=== PATIENT | female | born 1955 | race Caucasian/White ===

== ENCOUNTER 2025-06-23 14:45 | Outpatient (AMB) | payer MEDICARE, SELFPAY ==
--- OUTSIDE RECORDS SUMMARY | 2016-03-15 | XMS_ITS | Encounter Summary ---
Author Organization [facility] Address [address] [place] [address] Phone Care Team Providers Care Friend Of The Court Name Role Phone Unavailable Primary Care Provider Unavailabl e Encounter Details Date Type Department Care Team (Late st Contact Info) Description 03/15/2016 Hospital Encounter [facility] [address] [place] [address] Chase Rios Jp, MD [address] [facility] [address] [place] [address] [email or web address] Social History Tobacco Use Types Packs/Day Years Used Date Smoking Tobacco: Former Smokeless Tobacco: Never Alcohol Use Standard Drinks/Week Comments No 0 (1 standard drink = 0.6 oz pur e alcohol) Child or Family Care Answer Date Record ed Do you have problems with on e of the following making it difficult for you to work, study, or receive health care? No 05/09/2025 Education Answer Date Recorded Are you interested in more education? Not on payton e 02/14/2023 Are you concerned about learning? Not on file 02/14/2023 No 02/14/2023 No 02/14/2023 Food Answer Date Recorded Within the past 6 months we worried whether our food would run out before we got money to buy more. Never True 05/09/2025 Within the past 6 months the food we bought just didn't last and we didn't have enough money to get more. Never True Residential Stability Answer Date Recor ded What is your housing situation today? I have sophy sing 05/09/2025 How many times have you move d in the past 12 months? Zero (I did not move) 05/09/2025 Paying for Meds Answer Date Recorded Do you have trouble paying for medicines? No 05/09/2025 Paying Utility Bills Answer Date Record ed Do you have trouble paying your heating or elect ricity bill? No 05/09/2025 Transportation Answer Date Recorded Has the lack of transportati on kept you from medical appointments or from getting medications? No 05/09/2025 Digital Access Answer Date Recorded No 05/09/2025 Yes 05/09/2025 Do you have reliable internet access at home? Ye s 05/09/2025 Do you have a device (e.g., phone, tablet, computer) with a working camera? Yes 05/09/2025 Comments Unknown Sex and Gender Information Value Date Recorded Sex Assigned at Female 11/15/2024 9:22 AM EST Legal Sex Female 7:08 PM EST Gender Identity Not on file Sexual Orientation Choose not to disclose 2024 9:22 AM EST documented as of this encounter Functional Status documented as of this encounter Plan of Treatment Not on file documented as of this encounter Procedures Procedure Name Priority Date/Time Associated Diagnosis Comments XR UPPER EXTREMITY OUTSIDE (NO INTERPRETATION) Routine 03/15/2016 12:00 AM EDT documented in this encounter Results * XR Upper Extremity Outside (No Interpretation) (03/15/2016 12:00 AM EDT) Narrative [facility] IMG INTERFACES - 03/03/2018 1:43 PM EDT This study is for PACS storage only and not for interpretation. us Chase Rios MD IMG OUTSIDE IMAGING W/OUT INTER PRETATION Final Result [facility] IMG INTERFACES documented in this encounter Visit Diagnoses Not on filedocumented in this encounter Additional Source Comments The information contained in this document represents components of the legal health record. It is not the complete legal health record.[facility]
--- OUTSIDE RECORDS SUMMARY | 2017-11-22 01:00 | XMS_ITS | Encounter Summary ---
Author Organization [facility] Address [address] [place] [address] Phone Care Team Providers Care Horticultural Farmworker Name Role Phone Unavailable Primary Care Provider Unavailabl e Reason for Visit * MRI/CAT Scan - Closed Specialty Diagnoses / Procedures Referred By Becka saenz Referred To Contact Procedures MRI Outside Upper Extremity (No Interpretation) Chase Rios Jp, MD [address] [facility] [place] [address] Phone: tel: fax: [email or web address] Referral ID Status Reason Start Date Expiration Date Visits Re quested Visits Authorized [id number] Closed 03/03/2018 03/03/2019 1 1 Encounter Details Date Type Department Care Team (Late st Contact Info) Description 11/22/2017 Hospital Encounter [facility] Imaging [address] [place] [address] Chase Rios Jp, MD [address] [facility] [place] [address] [email or web address] Social History Tobacco Use Types Packs/Day [...] Procedure Name Priority Date/Time Associated Diagnosis Comments MRI UPPER EXTREMITY OUTSIDE (NO INTERPRETATION) Routine 11/22/2017 12:00 AM EST documented in this encounter Results * MRI Outside Upper Extremity (No Interpretation) (11/22/2017 12:00 AM EST) Narrative [facility] IMG INTERFACES - 03/03/2018 1:40 PM EDT This study is for PACS storage only and not for interpretation. us Chase Rios MD IMG OUTSIDE IMAGING W/OUT INTER PRETATION Final Result [facility]G INTERFACES documented in this encounter Visit Diagnoses Not on filedocumented in this encounter Additional Source Comments The information contained in this document represents components of the legal health record. It is not the complete legal health record.[facility]
--- OUTSIDE RECORDS SUMMARY | 2023-07-15 11:00 | XMS_ITS | Continuity of Care Document ---
Author Organization [facility] Address [address] [place] [address] [address] [place] [address] Phone Care Team Providers Care Scaler Name Role Phone Jorje GARCIA FACS RVT Gianni AMBROSE Unavailable Unavailable Allergies, Adverse Reactions, Alerts Substance Reaction Status Criticality latex Active No Information Medications Medication Instructions Dosage Effective Dates (start - stop) Status Comments PROGESTERONE (unknown strength) Not Available - Active LEVOXYL (unknown strength) take 1 tablet by oral route every day Not Available - Active Procedures Procedure Date Office/Oupt E&M New Pt 30 Mins Advance Directives Directive Yes / No Effective Date File Name No Information Encounters Encounter Description Practice Location Reason(s) For Visit Diagnoses Date Provider Providers Copied on Encounter Office/Oupt E&M New Pt 30 Mins [facility], [address] [place] [address] [address], [place], [id number], [place] tel:[phone] [facility] - [place] Chronic venous htn w oth comp of bilateral low extrm Sep-2 3 Jorje GARCIA FACS RVT ARNOL [place]. [address] [facility] [address] [address] [place]. tel:[phone] Referring Provider: NOT FOUND PCP. Family History Family Member Type Diagnosis Age At Onset No Information Payers Payer name Insurance type Covered alliance party ID Authoriza tion(s) Medicare HELEN HSU [id number] BCBS HELEN ROSE [id number] Social History Type Description Quantity Date Captured Comments Alcohol Use Details Unknown Caffeine Use Details Unknown Tobacco Use Status No Information Smoking Status Former Smoker Non-Smoking Tobacco Use Details : No Details Available : No Details Available Sex Female Vital Signs Date / Time: Height Weight BMI Pulse Rate Blood Pressure Temperature Respiratory Rate Body Surface Area Head Circumference Head Circ. Percentile Wt./Berto. Percentile BMI percentile Pulse Ox Inhaled Ox 48.530 kg (107.00 lbs) 19.5 9 kg/m eter (2) 110/66 mm[Hg] Chief Complaint And Reason For Visit No Information Reason For Referral Reason For Referral No Information Plan Of Treatment Date Type Action Status Goal Tobacco cessation counseling completed History Of Present Illness Encounter Date Complaint History Of Prese nt Illness No Information Functional Status Date Functional Assessmen t No Information Instructions Date Instruction Additional Infor mation Compression stocking usage as conservative measure Related to Chronic venous htn w oth comp of bilateral low extrm Patient education booklet given Related to Chronic venous htn w oth comp of bilateral low extrm Assessments Type Assessment Date No Information Patient Care Teams Name Effective Dates (start - stop) Status Members No Information
--- OUTSIDE RECORDS SUMMARY | 2024-02-28 09:00 | XMS_ITS ---
Author Organization [employer] [facility] Address [address] [place] [address] Care Team Providers Care Electro Mechanical Technician Name Role Phone Levy Sanon MD Primary Care Provider Unavail Eliza Valentin Unavailable [phone] REASON FOR VISIT HR MEDICARE PE Encounters Encounter Location Date Provider Diagnosis [facility] [facility] [address] [place] [address] 02/28/2024 Eliza Mendoza Plan Of Treatment Next Appt Details Provider Name:Eliza gonzales, 03/17/2026 01:00:00 PM, [address], [address], [place], [address], Progress Notes * MARY RHODESDOB:[birth year] (70 yo F)Acc No.[id number]:02/28/2024 PROGRESS NOTES Patient: MARY QUINN Appointment Provider: Ishan Mendoza M.D. :1955 A ge:69 Y S ex:Female Date:02/28/2024 Address:[address] [place], [place] [id number] Pcp:Levy Sanon MD Subjective: * Chief Complaints: * 1 . HR MEDICARE PE. * Medical History: Objective: * Vitals: Assessment: Plan: * Treatment: * Images: Billing Information: * Visit Code: * Procedure Codes: * Electronic signature of Carlos Mendoza MD on 06/23/2025 at 05:03 PM EDT Sign off status: Pending * Appointment Provider: Ishan Mendoza M.D. Date: 0 02/28/2024 Generated for Xuan mcallister/Colby/Damariitting on: 0 06/23/2025 05:03 PM EDT
--- NOTE | 2025-06-23 14:46 | A.OFFVIS_ITS ---
Vital Signs 06/23/25 14:49 Height 5 ft Weight 108 lb 4 oz BMI 21.1 BP 110/68 Blood Pressure Location Rt brachial Position Sitting Pulse 74 Pulse Source Pulse Oximeter Pulse Oximetry (%) 98 Oxygen Delivery Method Room Air Intake Visit Reasons: ENP - Hemifacial Spasm L Side Nutrition Therapist Required: No Accompanied by: Self / Same As Patient Allergies adhesive tape Allergy (Unknown, Verified 06/23/25 14:47) Unknown latex Allergy (Unknown, Verified 06/23/25 14:47) Unknown Penicillins Allergy (Unknown, Verified 06/23/25 14:47) Unknown HPI Comments Details: 70y/o female left hemifacial spasm for 12 years - seen by multiple neurologist , treated with botox comes for neurological opinion. she has trouble with botox due to difficulty closing after botox and has decided to go for surgery with scheduled Aug 2025. She says her hemifacial spasm affects her quality of life significantly. 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 Father No problems noted. Son No problems noted. Social History Alcohol intake: current Comment: Occasionally Patient Tobacco Use Status: Never used Tobacco Use of substances other than those prescribed or required for medical reasons: No Current occupational status: unemployed Physical Exam Vital Signs: Last Vital Signs Pulse 74 06/23/25 14:49 BP 110/68 06/23/25 14:49 Pulse Ox 98 06/23/25 14:49 Oxygen Delivery Method Room Air 06/23/25 14:49 BMI result Body Mass Index 21.1 Const Orientation/consciousness: patient oriented x3 Eyes Pupils: Equal, round and reactive pupils present Neuro Other: left hemifacial spasm MIld to moderate General: patient oriented x3, gait normal, tone normal, moves all extremities and no focal motor deficits Cranial nerves: Yes Facial sensation intact/muscles of mastication intact, Yes Equal, round and reactive pupils present, Yes Bilaterally intact EOM present, Yes Nystagmus not present, Yes Normal facial strength present, Yes Midline tongue present, Yes Symmetric palate elevation present and Yes Ability to bilaterally elevate shoulders present Cognition (Neuro): normal cognition Gait exam (Neuro): Normal gait present Motor exam (neuro): 5/5 motor strength present throughout and Normal motor muscle tone present throughout Deep tendon reflexes (DTR's): Right triceps reflex intensity grade: 2+, Left triceps reflex intensity grade: 2+, Rt Biceps (C5, C6): 2+, Left biceps reflex intensity grade: 2+, Right brachioradialis reflex intensity grade: 2+, Left brachioradialis reflex intensity grade: 2+, Right patellar reflex intensity grade: 2+, Left patellar reflex intensity grade: 2+ and Right ankle reflex intensity grade: 2+ Coordination: [id number] test normal Assessment & Plan Assessment & Plan (1) Hemifacial spasm of left side of face: Code(s): G51.32 - Clonic hemifacial spasm, left Category: Medical Plan She is scheduled for surgery in AUG ( microvascular decompression) will consider BOtox if she does not respond. Coding Level of Care Code New Pt Level 4 (79632) Diagnoses Hemifacial spasm of left side of face G51.32
[2025-06-23 14:49] VITALS: BP 110/68; PULSE 74; O2SAT 98; BMI 21.1
--- OUTSIDE RECORDS SUMMARY | 2025-06-23 17:03 | XMS_ITS | Clinical Summary ---
Author Organization [facility] Address [address] [place] [address] Care Team Providers Care Market Master Name Role Phone Levy Sanon Primary Care Provider [phone] Social History Tobacco Use Types Packs/Day Years Used Date Smoking Tobacco: Never Assessed Comments Unknown Sex and Gender Information Value Date Recorded Sex Assigned at Not on file Legal Sex Female 10:22 PM EDT Gender Identity Not on file Sexual Orientation Not on file Plan of Treatment Health Maintenance Due Date Last Done Comments Hepatitis C Screening 1955 DTaP/Tdap/Td (1 - Tdap) 1971 Mammogram/Breast Imaging 1993 Pneumococcal 50+ years (1 of 1 - PCV) 2003 Zoster (Shingrix) (1 of 2) 2003 Bone Density 2018 COVID-19 Vaccine ( - 2023-2 5 season) 2025 Influenza (#1) 2025 RSV (1 - 1-dose 75+ series) 02/28/2028 HPV Vaccine (No Doses Required) Completed Hep A Aged Out No longer eligi ble based on patient's age to complete this topic Hep B Aged Out No longer eligi ble based on patient's age to complete this topic Hib Aged Out No longer eligi ble based on patient's age to complete this topic Meningococcal ACWY Aged Out No longer eligible based on patient's age to complete this topic Pap Smear Discontinued Zoster (Zostavax) Discontinued Care Teams Market Master Relationship Specialty Start Date End Date Levy Sanon [facility] [place] [id number] [facility] - General 08/22/06
--- OUTSIDE RECORDS SUMMARY | 2025-06-23 17:03 | XMS_ITS | Clinical Summary ---
Author Organization [facility] Address [address] [facility] [facility] [address] [place] [address] Phone Care Team Providers Care Roundhouse Supervisor Name Role Phone Levy Sanon MD Primary Care Provider Luca Irvin MD, PhD Unavailable [phone] Blane Key MD Unavailable [phone] James North MD Unavailable Self-Referred, Patient Unavailable Unavailab le Allergies Active Allergy Reactions Criticality Noted Date Comments Cephalosporins GI Upset Low 10/23/2018 Latex, Natural Rubber Rash High 10/23/2018 Macrolide Antibiotics GI Upset High 10/31/2018 Nickel Rash High 10/23/2018 Penicillins Rash High 10/23/2018 Adhesive Tape-Silicones Rash High 10/23/2018 Patient can use papertape. Medications calcium carbonate-kenney min D3 1,250 mg (500 mg elemental)-400 units Tab Take 1 tablet by mouth daily. Active cholecalcifero l (VITAMIN D3) 2,000 unit tablet Take 1,000 Units by mouth daily. Active ascorbic acid, vitamin C, (VITAMIN C) 250 mg ChewIndication s:takes 2 of them Take 500 mg by mouth daily. Active levothyroxine (SYNTHROID, LEVOTHROID) 100 MCG tabletIndicati ons:uses brand levoxyl only Take 100 mcg by mouth every morning. Active oxyCODONE 5 MG immediate release tablet Take 1-2 tablets (5-10 mg total) by mouth every 4 (four) hours as needed for moderate pain. 50 tablet 9 Active docusate sodium (COLACE) 100 MG capsule Take 1 capsule (100 mg total) by mouth 2 (two) times a day. 60 capsule 1 9 Active acetaminophen (TYLENOL) 325 mg tablet Take 1-2 tablets (325-650 mg total) by mouth every 6 (six) hours as needed for mild pain. 50 tablet 1 9 Active aspirin 325 MG tablet Take 1 tablet (325 mg total) by mouth daily. Take once daily to prevent postoperative blood clots. 28 tablet 9 Active ondansetron (ZOFRAN) 4 MG tablet Take 1 tablet (4 mg total) by mouth every 8 (eight) hours as needed. 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 Malignant neoplasm of left female breast 025 PONV (postoperative nausea and vomiting) 019 Traumatic rotator cuff tear, right, subsequent e ncounter Encounters Date Type Department Care Team Description 05/13/2025 2:30 PM EDT Office Visit [facility] [address] [place] [address], 9[address] Floor, [address] [place] [address] Héctor Dang MD Clonic hemifacial spasm of muscle of left side of face (Primary Dx) 04/28/2025 Ancillary Orders [facility] [address] [place] [address] Héctor Dang MD 04/27/2025 - 04/27/2025 11:59 PM EDT Hospital Encounter [facility] [address] [place] [address] Héctor Dang MD Discharge Disposition: Home or Self Care 04/19/2025 4:00 PM EDT Office Visit [facility], [facility] [address] [place] [address] Luca Irvin MD, PhD Malignant neoplasm of left female breast, unspecified estrogen receptor status, unspecified site of breast (Primary Dx) 04/19/2025 1:00 PM EDT Telemedicine [facility], [facility] [address] [place] [address] Herlinda Monge MD, MPH CHEK2 positive (Primary Dx) 04/19/2025 12:00 PM EDT [facility], [facility] [address] [facility] [address] [facility] 10[address] [place] [address] Herlinda Monge MD, MPH Ashanti Beavers, YADIRA Malignant neoplasm of left female breast (Primary Dx); CHEK2 positive from Last 3 Months Family History Medical History Relation Comments Breast cancer Father Ovarian cancer Maternal Grandfather Breast cancer Paternal Aunt Endometrial cancer Paternal Cousin Relation Status Comments Father Maternal Grandfather Paternal Aunt Paternal Cousin Alive Social History Tobacco Use Types Packs/Day Years [...] not to disclose 2024 9:22 AM EST Last Filed Vital Signs Vital Sign Reading Time Taken Comments Blood Pressure 99/64 05/13/2025 2:03 PM EDT Pulse 65 05/13/2025 2:03 PM EDT Temperature 36.3 C (97.4 F) 05/13/2025 2:03 PM EDT Respiratory Rate 16 05/13/2025 2:03 PM EDT Oxygen Saturation 98% 05/13/2025 2:03 PM EDT Inhaled Oxygen Concentration - - Weight 48.5 kg (107 lb) 05/13/2025 2:03 PM EDT Height 153.5 cm (5' 0.43 ) 05/13/2025 2:03 PM ED T Body Mass Index 20.6 05/13/2025 2:03 PM EDT Plan of Treatment Health Maintenance Due Date Last Done Comments Adult Td,Tdap Booster 1955 LIPID PANEL 1953 TSH LEVEL 1953 DEPRESSION SCREENING 1965 SMOKING Hx and SMOKELESS TOBACCO SCREENING 1966 HEPATITIS C SCREENING 1971 COLOGUARD 1998 COLONOSCOPY 1998 COLORECTAL CANCER SCREENING 1998 FIT TEST 1998 FOBT 1998 SIGMOIDOSCOPY 1998 VIRTUAL COLONOSCOPY 1998 OSTEOPOROSIS SCREENING INITIAL (ONE-TIME) 2018 COVID-19 VACCINE ( season) 2024 10/08/2021, 02/03/2021, 01/13/2021 INFLUENZA VACCINE (#1) 2025 , 08/21/2018, 10/25/2017 MAMMOGRAM 09/10/2026 09/10/2024, 06/2024, 07/15/2024, Additional history exists RSV VACCINE (1 - 1-dose 75+ series) 02/28/2028 ZOSTER VACCINES Completed 11/09/2020, 12/2019, 10/06/2015 PNEUMOCOCCAL VACCINES (50+ years) Completed 03/05/2024, 10/03/2018 HEPATITIS A VACCINES Aged Out No long er eligible based on patient's age to complete this topic HIB VACCINES Aged Out No longer eligi ble based on patient's age to complete this topic MENINGOCOCCAL VACCINES (ACWY) Aged Out No longer eligible based on patient's age to complete this topic MENINGOCOCCAL VACCINES (B) Aged Out N o longer eligible based on patient's age to complete this topic Medical Devices Implanted Type Area Vp Software Device Identifier Shelf Expiration Date Model / Serial / Lot Right Knee Hardware [employer] Full Thread Lf Sterile Disp [id number] W/3 #2 [employer] - Discontinued Per 2018 Sports Med Vat - [id number] Implanted:Qty: 2 on 11/05/2018 by Chase Rios Jp, MD at [facility] Right: Shoulder ARTHREX 10/20/2019 [id number] / [id number] Procedures Procedure Name Priority Date/Time Associated Diagnosis Comments MRI BRAIN OUTSIDE (NO INTERPRETATION) Routine 04/27/2025 12:00 AM EDT BI MAMMOGRAM OUTSIDE (NO INTERPRETATION) Routine 09/10/2024 12:00 AM EST from Last 3 Months or Most Recently Relevant to Health Maintenance Results * MRI Brain Outside (No Interpretation) (04/27/2025 12:00 AM EDT) Narrative [facility] - 04/28/2025 10:25 AM EDT This study is for PACS storage only and not for interpretation. Héctor Dang MD IMG OUTSIDE IMAGING W /OUT INTERPRETATION Final Result H IMG INTERFACES * Mammogram Outside (No Interpretation) (09/10/2024 12:00 AM EST) Other Narrative [facility] - 10/19/2024 2:54 PM EST This study is for PACS storage only and not for interpretation. Luca Irvin MD, PhD IMG OUTSIDE IMAGING W/ OUT INTERPRETATION Final Result MARIE_PAULINE from Last 3 Months or Most Recently Relevant to Health Maintenance Insurance MEDEX SUPPLEMENT MEDICARE PART A & B NEMO Equipment MEDEX SUPPLEMENT MEDICARE PART A & B NEMO Equipment MEDEX SUPPLEMENT MEDICARE PART A & B NEMO Equipment MEDEX SUPPLEMENT MEDICARE PART A & B NEMO Equipment MEDEX SUPPLEMENT MEDICARE PART A & B BLUE CROSS MEDEX SUPPLEMENT MEDICARE PART A & B Member Subscriber Plan / Payer ( fective 2023-Present) Name:Trinity Arias Member ID:[id number] Relation to Subscriber:Self Name:Trinity Arias Subscriber ID:[id number] Payer ID:[id number] Group ID:Not on file Type:Medicare Address: [place] [id number] Care Teams Roundhouse Supervisor Relationship Specialty Start Date End Date Levy Sanon MD [address] [place] [id number] PCP - General Internal Medicine 01/06/18 Luca Irvin MD, PhD [address] [place] [id number] [email or web address] Medical Oncology 10/12/24 Blane Key MD [address] [place] [id number] [email or web address] Surgical Oncology 10/12/24 James North MD [facility] [place] [address] [email or web address] Radiation Oncology 10/12/24 Self-Referred, Patient 10/12/24 Additional Source Comments The information contained in this document represents components of the legal health record. It is not the complete legal health record.[facility]
--- OUTSIDE RECORDS SUMMARY | 2025-06-23 17:03 | XMS_ITS | Clinical Summary ---
Author Organization [facility] Address [address] [place] [address] Phone Care Team Providers Care Oral Hygienist Name Role Phone Levy Sanon MD Primary Care Provider + [phone] Encounters Date Type Department Care Team Description 04/11/2025 1:51 PM EDT - 04/11/2025 11:59 PM EDT Hospital Encounter [facility] [address] [place] [address] Hepatic cyst Discharge Disposition: Home or Self Care from Last 3 Months Social History Tobacco Use Types Packs/Day Years Used Date Smoking Tobacco: Former Smokeless Tobacco: Never Comments Unknown Sex and Gender Information Value Date Recorded Sex Assigned at Female 04/09/2025 11:09 AM EDT Legal Sex Female 8:31 AM EST Gender Identity Female 04/09/2025 11:09 AM EDT Sexual Orientation Not on file Obstetrics History Plan of Treatment Health Maintenance Due Date Last Done Comments Breast Cancer Screening 1955 DTaP,Tdap,and Td Vaccines (1 - Tdap) 02/28/1972 Colorectal Cancer Screening: Colonoscopy 09/23/2022 Falls Risk Assessment 09/23/2022 Hepatitis C Screening 09/23/2022 Medicare Annual Wellness Visit 09/23/2022 Osteoporosis Screening (Bone Density Screening) 09/23/2022 Social Influencers of Health Screening 09/23/2022 Depression Screening 10/21/2024 COVID-19 Vaccine (4 - 2024-2 6 season) 2025 10/08/2021, 02/03/2021, 01/13/2021 Influenza Vaccine (#1) 2025 0, 08/21/2018, 10/25/2017 RSV Immunization Adult Patients (1 - 1-dose 75+ series) 02/28/2028 Zoster Vaccines Completed 11/09/2020, 08/23/2020, 10/06/2015 Pneumococcal Vaccine: 50+ Years Completed 03/05/2024, 10/03/2018 HIB Vaccines Aged Out No longer eligi ble based on patient's age to complete this topic HPV Vaccines Aged Out No longer eligi ble based on patient's age to complete this topic Hepatitis A Vaccines Aged Out No long er eligible based on patient's age to complete this topic Hepatitis B Vaccines Aged Out No long er eligible based on patient's age to complete this topic IPV Vaccines Aged Out No longer eligi ble based on patient's age to complete this topic MMR Vaccines Aged Out No longer eligi ble based on patient's age to complete this topic Meningococcal ACWY Vaccine Aged Out N o longer eligible based on patient's age to complete this topic Meningococcal B Vaccine Aged Out No l onger eligible based on patient's age to complete this topic RSV Immunization Patients Under 20 months Aged Out No longer eligible b ased on patient's age to complete this topic Varicella Vaccines Aged Out No longer eligible based on patient's age to complete this topic Procedures Procedure Name Priority Date/Time Associated Diagnosis Comments US ABDOMEN LIMITED Routine 04/11/2025 2: 40 PM EDT Hepatic cyst from Last 3 Months Results * US Abdomen Limited (04/11/2025 2:40 PM EDT) Anatomical Region Laterality Modality Body Ultrasound 04/12/2025 3:55 PM EDT Impressions 04/12/2025 4:33 PM EDT Scattered hepatic cysts. No acute findings. -------- FINAL REPORT -------- Dictated By: Alexis Venegas Dictated Date: 04/12/2025 15:55 ET Assigned Physician: Alexis Venegas Reviewed and Electronically Signed By: Alexis Venegas Signed Date: 04/12/2025 16:33 ET Workstation ID: [id number] Transcribed By: Self Edit Transcribed Date: 04/12/2025 15:56 ET Narrative 04/12/2025 4:33 PM EDT PROCEDURE: Right upper quadrant ultrasound. HISTORY: hepatic cyst. COMPARISON: 10/24/2021 CT TECHNIQUE: Grayscale, color Doppler, and spectral Doppler ultrasound evaluation of the right upper quadrant of the abdomen. FINDINGS: LIVER: Normal echotexture. Several cysts, measuring up to 1.9 cm in diameter.. Normal flow in the main portal vein. BILIARY: Normal appearance of the gallbladder. The common duct is mildly prominent proximally, measuring 6 mm in diameter, but tapers distally. There is no visible ductal filling defect Negative sonographic Reyes sign. PANCREAS: Visualized portions are normal. RIGHT KIDNEY: Normal size and echotexture. No hydronephrosis or focal lesion. Procedure Note Alexis Venegas MD - 04/12/2025 PROCEDURE: Right upper quadrant ultrasound. HISTORY: hepatic cyst. COMPARISON: 10/24/2021 CT TECHNIQUE: Grayscale, color Doppler, and spectral Doppler ultrasoundevaluation of the right upper quadrant of the abdomen. FINDINGS: LIVER: Normal echotexture. Several cysts, measuring up to 1.9 cm indiameter.. Normal flow in the main portal vein. BILIARY: Normal appearance of the gallbladder. The common duct is mildlyprominent proximally, measuring 6 mm in diameter, but tapers distally.There is no visible ductal filling defect Negative sonographic Murphysign. PANCREAS: Visualized portions are normal. RIGHT KIDNEY: Normal size and echotexture. No hydronephrosis or focallesion. IMPRESSION: Scattered hepatic cysts. No acute findings. -------- FINAL REPORT -------- Dictated By: Alexis Venegas Dictated Date: 04/12/2025 15:55 ET Assigned Physician: Alexis Venegas Reviewed and Electronically Signed By: Alexis Venegas Signed Date: 04/12/2025 16:33 ET Workstation ID: [id number] Transcribed By: Self Edit Transcribed Date: 04/12/2025 15:56 ET [facility] Final Resu lt from Last 3 Months Insurance MEDICARE [facility] Care Teams Oral Hygienist Relationship Specialty Start Date End Date Levy Sanon MD [address] [place] [phone] PCP - General Internal Medicine 04/09/25
--- OUTSIDE RECORDS SUMMARY | 2025-06-23 17:03 | XMS_ITS | Encounter Summary ---
Author Organization [facility] Address [address] [facility] [address] [place] [address] Phone Care Team Providers Care Senior Business Development Analyst Name Role Phone Levy Sanon MD Primary Care Provider Luca Irvin MD, PhD Unavailable Blane Key MD Unavailable James North MD Unavailable Self-Referred, Patient Unavailable Unavailab le Encounter Details Date Type Department Care Team (Late st Contact Info) Description 11/02/2024 Ancillary Orders Outside Imaging Luca Irvin MD, PhD [address] [place] [phone] [email or web address] Social History Tobacco Use Types Packs/Day Years Used Date Smoking Tobacco: Former Smokeless Tobacco: Never Alcohol Use Standard Drinks/Week Comments No 0 (1 standard drink = 0.6 oz pur e alcohol) Education Answer Date Recorded Are you interested in more education? Not on payton e 02/14/2023 Are you concerned about learning? Not on file 02/14/2023 No 02/14/2023 No 02/14/2023 Digital Access Answer Date Recorded No 03/18/2023 No 03/18/2023 Reliable internet access at home? Not on file 03/18/2023 Device with a working camera? Not on file Comments Unknown Sex and Gender Information Value Date Recorded Sex Assigned at Female 11/15/2024 9:22 AM EST Legal Sex Female 7:08 PM EST Gender Identity Not on file Sexual Orientation Choose not to disclose 2024 9:22 AM EST documented as of this encounter Plan of Treatment Not on file documented as of this encounter Results * NM Bone Outside (No Interpretation) (10/28/2024 12:00 AM EST) Other Narrative MAURICIO - 11/02/2024 10:06 AM EST This study is for PACS storage only and not for interpretation. us Luca Irvin MD, PhD IMG OUTSIDE IMAGING W/ OUT INTERPRETATION Final Result MARIE_PAULINE documented in this encounter Visit Diagnoses Not on filedocumented in this encounter Care Teams Senior Business Development Analyst Relationship Specialty Start Date End Date Levy Sanon MD [address] [place] [address] PCP - General Internal Medicine 01/06/18 Luca Irvin MD, PhD [address] [place] [phone] [email or web address] Medical Oncology 10/12/24 Blane Key MD [address] [place] [phone] [email or web address] Surgical Oncology 10/12/24 James North MD [address] [place] [phone] [email or web address] Radiation Oncology 10/12/24 Self-Referred, Patient 12/23/24 documented as of this encounter Additional Source Comments The information contained in this document represents components of the legal health record. It is not the complete legal health record.[facility]
--- OUTSIDE RECORDS SUMMARY | 2025-06-23 17:03 | XMS_ITS | Encounter Summary ---
Author Organization [facility] Address [address] [place] [address] Phone Care Team Providers Care Deputy District Customs Director Name Role Phone Levy Sanon MD Primary Care Provider Luca Irvin MD, PhD Unavailable Blane Key MD Unavailable James North MD Unavailable Self-Referred, Patient Unavailable Unavailab le Encounter Details Date Type Department Care Team (Late st Contact Info) Description 11/05/2018 Procedure Pass [facility] [address] [place] [address] Social History Tobacco Use Types Packs/Day Years Used Date Smoking Tobacco: Former Smokeless Tobacco: Never Alcohol Use Standard Drinks/Week Comments No 0 (1 standard drink = 0.6 oz pur e alcohol) Comments Unknown Sex and Gender Information Value Date Recorded Sex Assigned at Female 11/15/2024 9:22 AM EST Legal Sex Female 7:08 PM EST Gender Identity Not on file Sexual Orientation Choose not to disclose 2024 9:22 AM EST documented as of this encounter Plan of Treatment Not on file documented as of this encounter Visit Diagnoses Not on filedocumented in this encounter Care Teams Deputy District Customs Director Relationship Specialty Start Date End Date Levy Sanon MD [address] [place] [address] PCP - General Internal Medicine 01/06/18 Luca Irvin MD, PhD [address] [place] [phone] [email or web address] Medical Oncology 10/12/24 Blane Key MD [address] [place] [phone] [email or web address] Surgical Oncology 10/12/24 James North MD [address] [place] [phone] [email or web address] Radiation Oncology 10/12/24 Self-Referred, Patient 10/12/24 documented as of this encounter Additional Source Comments The information contained in this document represents components of the legal health record. It is not the complete legal health record.[facility]
--- OUTSIDE RECORDS SUMMARY | 2025-06-23 17:03 | XMS_ITS | Encounter Summary ---
Author Organization [facility] Address [address] [address] [place] [address] Phone Care Team Providers Care Drainlayer Name Role Phone Levy Sanon MD Primary Care Provider Luca Irvin MD, PhD Unavailable Blane Key MD Unavailable James North MD Unavailable Self-Referred, Patient Unavailable Unavailab le Encounter Details Date Type Department Care Team (Late st Contact Info) Description 11/02/2024 Ancillary Orders Outside Imaging Luca Irvin MD, PhD [address] [place] [phone] [email or web address] Social History Tobacco Use Types Packs/Day [...] documented as of this encounter Results * CT Chest Outside (No Interpretation) (10/28/2024 12:05 AM EST) Other Narrative MAURICIO - 11/02/2024 10:09 AM EST This study is for PACS storage only and not for interpretation. us Luca Irvin MD, PhD IMG OUTSIDE IMAGING W/ OUT INTERPRETATION Final Result MARIE_LAURAH documented in this encounter Visit Diagnoses Not on filedocumented in this encounter Care Teams Drainlayer Relationship Specialty Start Date End Date Levy Sanon MD [address] [place] [phone] PCP - General Internal Medicine 01/06/18 Luca Irvin MD, PhD [address] [place] [phone] [email or web address] Medical Oncology 10/12/24 Blane Key MD [address] [place] [phone] [email or web address] Surgical Oncology 10/12/24 James North MD [address] [place] [phone] [email or web address] Radiation Oncology 10/12/24 Self-Referred, Patient 12/23/24 documented as of this encounter Additional Source Comments The information contained in this document represents components of the legal health record. It is not the complete legal health record.[facility]
--- OUTSIDE RECORDS SUMMARY | 2025-06-23 17:03 | XMS_ITS | Encounter Summary ---
Author Organization [facility] Address [address] [place] [address] Phone Care Team Providers Care Liquefaction Plant Operator Name Role Phone Levy Sanon MD Primary Care Provider Luca Irvin MD, PhD Unavailable Blane Key MD Unavailable [phone] James North MD Unavailable Self-Referred, Patient Unavailable Unavailab le Encounter Details Date Type Department Care Team (Late st Contact Info) Description 03/03/2018 Procedure Pass [facility] Imaging [address] [place] [address] Social History Tobacco Use Types Packs/Day Years [...] on filedocumented in this encounter Care Teams Liquefaction Plant Operator Relationship Specialty Start Date End Date Levy Sanon MD [address] [place] [address] PCP - General Internal Medicine 01/06/18 Luca Irvin MD, PhD [address] [place] [phone] [email or web address] Medical Oncology 10/12/24 Blane Key MD [address] [place] [phone] [email or web address] Surgical Oncology 10/12/24 James North MD [address] [place] [phone] [email or web address] Radiation Oncology 10/12/24 Self-Referred, Patient 10/12/24 documented as of this encounter Additional Source Comments The information contained in this document represents components of the legal health record. It is not the complete legal health record.[facility]
--- OUTSIDE RECORDS SUMMARY | 2025-06-23 17:03 | XMS_ITS | Patient Health Record ---
Author Organization [facility] Address [address] [place] [address] Care Team Providers Care Medtronics Technician Name Role Phone Levy Sanon MD Primary Care Provider Unavail able Black, Gely Unavailable [phone] Allergies Allergen (clinical drug ingredient) Drug/Non Drug Allergy documented on EMR Reaction Allergy Type Onset Date Status Biaxin upset stomach Drug Allergy Act grady Adhesive Unknown Allergy Active erythromycin Erythromycin upset stomach Drug Allergy Active Latex Latex Unknown Allergy Active nickel Nickel Unknown Allergy Active Penicillin Unknown Drug Allergy Active Substance with sulfonamide structure and antibacterial mechanism of action (substance) Sulfa Antibiotics stomaach issues Drug Allergy Active Reason For Referral No Information Medications Medication SIG (Take, Route, Frequency, Duration) Notes Start Date End Date Status Progesterone 100 MG as directed Orally Active Calcium Active Vitamin D3 Active Estrogens Conjugated estrogen patch Not-Taking Physical Therapy 3-4x per week for 3-4 weeks 07/16/2017 Not-Taking Prempro 0.3-1.5 MG 1 tablet Orally Once a day; Duration: 30 day(s) Not-Taking Gabapentin 100 mg 2 xs per day Not-Taking Estrogel Active Levoxyl 75 MCG 1 tablet every morning on an empty stomach Orally Once a day Active Progesterone Active Social History Tobacco Use: Social History Observation Description Date Details (start date - stop date) Former Smoker NA - NA Tobacco Use/Smoking Question Answer Notes Are you a: former smoker How long has it been since you last smoked? < 1 month Additional Findings: Tobacco Non-User Current no n-smoker Tobacco use other than smoking: Question Answer Notes Are you an other tobacco user? No Problems Problem Type SNOMED Code ICD Code Onset Dates Problem Status W/U Status Risk Notes Problem Acquired hallux valgus (73788529) Hallux valgus (acquired), left foot (M20.12) Active confirmed Problem Acquired hallux valgus (01571493) Hallux valgus (acquired), right foot (M20.11) Active confirmed Problem Acquired hammer toe of right foot (9419481511633 105) Other hammer toe(s) (acquired), right foot (M20.41) Active confirmed Problem Acquired hammer toe of left foot (0608037156097 103) Other hammer toe(s) (acquired), left foot (M20.42) Active confirmed Plan Of Treatment Pending Test Test Name Order Date [id number] Destruction, 11-0305/09/2022 [id number] Destruction, 11-0309/26/2022 [id number]- Debride <25 sq cm 06/02/2013 [id number] SKIN/TISSUE 06/12/2013 Insurance Providers Payer Name Payer Address Payer Phone Subscriber Number Group Number Insured Name Patient Relationship to Insured Coverage Start Date Coverage End Date [facility] [address] [place] [phone] [id number] Zhang Arias Spouse - patient is the spouse of the insured Medical (General) History Medical History History ICD Code diverticulosis thyroid disorder measles mumps chicken pox Broken bones Cataracts Back,Hip,and Knee pain Diverticulosis thyroid Joint implants/screws bepharo spasm Surgical History Surgery Date(Month/Year) acl 2002 tendon transfer 2002 knee surgery, right 2005 hammer toe 2007 foot surgery
--- OUTSIDE RECORDS SUMMARY | 2025-06-23 17:03 | XMS_ITS | Encounter Summary ---
Author Organization [facility] Address [address] [facility] [address] [place] [address] Phone Care Team Providers Care Stallion Manager Name Role Phone Levy Sanon MD Primary Care Provider Luca Irvin MD, PhD Unavailable Blane Key MD Unavailable James North MD Unavailable Self-Referred, Patient Unavailable Unavailab le Encounter Details Date Type Department Care Team (Late st Contact Info) Description 11/02/2024 Ancillary Orders Outside Imaging Luca Irvin MD, PhD [address] [place] [phone] [email or web address] Social History Tobacco Use Types Packs/Day [...] on filedocumented in this encounter Care Teams Stallion Manager Relationship Specialty Start Date End Date Levy Sanon MD [address] [place] [phone] PCP - General Internal Medicine 01/06/18 Luca Irvin MD, PhD [address] [place] [phone] [email or web address] Medical Oncology 10/12/24 Blane Key MD [address] [place] [phone] [email or web address] Surgical Oncology 10/12/24 James North MD [address] [place] [phone] [email or web address] Radiation Oncology 10/12/24 Self-Referred, Patient 10/12/24 documented as of this encounter Additional Source Comments The information contained in this document represents components of the legal health record. It is not the complete legal health record.[facility]
--- OUTSIDE RECORDS SUMMARY | 2025-06-23 17:04 | XMS_ITS | Patient Health Record ---
Author Organization [facility] Address [address] [place] [address] Care Team Providers Care Heel Scorer Name Role Phone Levy aSnon MD Primary Care Provider Unavail able Eliza Mendoza Unavailable [phone] Allergies Allergen (clinical drug ingredient) Drug/Non Drug Allergy documented on EMR Reaction Allergy Type Onset Date Status Medicinal cephalosporin and acting as antibacterial agent (FN) Cephalosporins Unknown Drug Allergy Active Latex Latex Redness/Rash Allergy Active Results Component Value Reference Range Notes Urinalysis, [id number] Reviewed date:03/14/2025 08:25:31 PM Interpretation: Performing Lab:[facility], [address] [facility], Phone - [phone], Director - MDJodry Notes/Report: Specific [place] 1.007 1.005-1.030 pH 7.0 5.0-7.5 Urine-Color Yellow Yellow Appearance Clear Clear WBC Esterase Negative Negative Protein Negative Negative/Trace Glucose Negative Negative Ketones Negative Negative Occult Blood Negative Negative Bilirubin Negative Negative Urobilinogen,Semi-Qn 0.2 0.2-1.0 mg/dL Nitrite, Urine Negative Negative Microscopic Examination Micr oscopic follows if indicated. Microscopic Examination See below: Micr oscopic was indicated and was performed. WBC None seen 0 - 5 /hpf RBC None seen 0 - 2 /hpf Epithelial Cells (non renal) None seen 0 - 10 /hpf Casts None seen None seen /lpf Bacteria None seen None seen/Few Urine Culture, Routine-[id number] Reviewed date:03/14/2025 08:25:25 PM Interpretation: Performing Lab:[facility] [place], [address], [place], Phone - [phone], Director - MDJodry Notes/Report: Urine Culture, Routine Final report Result 1 No growth Urinalysis Reviewed date:03/11/2025 05:19:52 PM Interpretation: Performing Lab: Notes/Report: NITRITE Neg PH 6.0 PROTEIN Trace S.G 1.000 WBC Trace GLUCOSE Neg KETONES Neg UROBILINOGEN Neg BILIRUBIN Neg BLOOD Trace PDF Report Reviewed date:03/14/2025 08:25:13 PM Interpretation: Performing Lab:[facility], [address], [place], Phone - [phone], Director - Sven Notes/Report: Reason For Referral No Information Medications Medication SIG (Take, Route, Frequency, Duration) Notes Start Date End Date Status Vitamin D 2000 UNIT 1 tablet Orally Once a day Active Calcium with Vitamin D3-1 tablet Oral Daily 400/20 Active Magnesium Citrate Ac tive Exemestane 25 MG 1 tablet with a meal Orally Once a day Active Retin-A 0.025 % 1 application in the evening to face Externally Once a day Unknown dose Active Levoxyl 75 MCG 1 tablet in the morn ing on an empty stomach Orally Once a day Active Benefiber - as directed Orally 2 TSP daily Active Vitamin E 180 MG (400 UNIT) 1 capsule Orally Once a day Active Social History Tobacco Use: Social History Observation Description Date Details (start date - stop date) Former Smoker NA - NA AUDIT-C (Standard) Question Answer Notes Did you have a drink containing alcohol in the p ast year? No Points 0 Interpretation Negative Tobacco Control (Standard) Question Answer Notes Tobacco use: Former smoker How long has it been since you last smoked? Grea ter than 10 years Problems Problem Type SNOMED Code ICD Code Onset Dates Problem Status W/U Status Risk Notes Problem Menopause (779688488) Menopausal and female climacteric states (N95.1) Active confirmed Problem Postmenopausal atrophic vaginitis (86876629) Postmenopausal atrophic vaginitis (N95.2) Active confirmed Problem Postmenopausal bleeding (72961380) Postmenopausal bleeding (N95.0) Active confirmed Problem Urinary incontinence (760717198) Unspecified urinary incontinence (R32) Active confirmed Problem Screening for malignant neoplasm of breast (629994882) Encounter for screening mammogram for malignant neoplasm of breast (Z12.31) Active confirmed Problem Personal history of primary malignant neoplasm of breast (156759870) Personal history of malignant neoplasm of breast (Z85.3) Active confirmed Problem Menopause (824997091) Menopausal and female climacteric states (N95.1) Active confirmed Problem Hypothyroidism (14758389) Unspecified hypothyroidism (244.9) Active confirmed Major Problem Diverticulosis of colon (finding) (186405636) Diverticulosis of colon (without mention of hemorrhage) (562.10) Active confirmed Other Problem Menopausal symptom (39004347) Symptomatic menopausal or female climacteric states (627.2) Active confirmed Major Problem Gynecological examination normal (905693748712148) Routine gynecological examination (V72.31) Active confirmed Problem Screening for malignant neoplasm of colon (140444744) Special screening for malignant neoplasms, colon (V76.51) Active confirmed Major Vital Signs Temperature 97.5 degrees Fahrenheit 03/11/2025 Blood pressure diastolic 64 mm Hg 03/11/2025 Height 60.25 in 03/11/2025 Blood pressure systolic 104 mm Hg 03/11/2025 Weight 103 lbs 03/11/2025 BMI 19.95 kg/m2 03/11/2025 Encounters Encounter Location Date Provider Diagnosis [facility] [address] [address] 03/11/2025 Eliza Mendoza Encounter for screening mammogram for malignant neoplasm of breast Z12.31 ; Personal history of malignant neoplasm of breast Z85.3 ; 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 ; Other specified disorders of bone density and structure, 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 ; Postmenopausal atrophic vaginitis N95.2 ; Dense breasts, unspecified R92.30 and Encounter for gynecological examination (general) (routine) without abnormal findings Z01.[address] [address] 07/29/2024 Eliza Mendoza [facility] [address] [address] 08/04/2024 Eliza Mendoza [facility] [address] [address] 08/11/2024 Eliza Mendoza [facility] [address] [address] 09/21/2024 Eliza Mendoza [facility] [address] [address] 10/05/2024 Eliza Mendoza [facility] [address] [place] [address] 10/12/2024 Eliza Mendoza [facility] [address] [place] [address] 03/11/2025 Eliza Mendoza [facility] [address] [place] [address] 03/16/2025 Eliza Mendzoa Assessments Encounter Date Diagnosis (ICD Code) Assessment Notes Treatment Notes Treatment Clinical Notes Section Notes 03/11/2025 Encounter for screening mammogram for malignant neoplasm of breast (ICD-10 - Z12.31) REGULAR MAMMOGRAMS AND SBE'S WERE RECOMMENDED. 03/11/2025 Personal history of malignant neoplasm of breast (ICD-10 - Z85.3) CONTINUE FOLLOW UP AT [facility]. 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 RECOMMENDED SHE SEE HER ONCOLOGIST AT [facility] TO DISCUSS SIGNIFICANCE OF THIS MUTATION AND WHAT OTHER PROCEDURES SHE MAY NEED TO BE DONE AND HOW TO BETTER MONITOR HER FOR BREAST AND OTHER CANCERS SUCH COLON CA. GET RECORDS FROM GENETICS SECTION AT [facility]. 03/11/2025 Other specified disorders of bone density and structure, multiple sites (ICD-10 - M85.89) DISCUSSED HER LAST BMD AND MILD OSTEOPENIA. ADEQUATE CALCIUM AND VIT D. WEIGHT BEARING EXERCISES. REPEAT BMD THIS YEAR. 03/11/2025 Postmenopausal atrophic vaginitis (ICD-10 - N95.2) DISCUSSED FINDINGS, DX AND TX OPTIONS. PAT IS ASYMPTOMATIC. 03/11/2025 Dense breasts, unspecified (ICD-10 - R92.30) DISCUSSED DENSE BREASTS ON MAMMOGRAM AND ITS IMPLICATIONS. 3D MAMMOGRAMS WERE RECOMMENDED. 03/11/2025 Encounter for gynecological examination (general) (routine) without abnormal findings (ICD-10 - Z01.419) NO MORE PAP TESTS. Plan Of Treatment Pending Test Test Name Order Date MAMMOGRAM, SCREENING 02/02/2016 MAMMOGRAM, SCREENING 01/27/2015 MAMMOGRAM, SCREENING 02/20/2021 MAMMOGRAM, SCREENING 02/21/2022 MAMMOGRAM, SCREENING 02/22/2023 MAMMOGRAM, SCREENING 03/05/2024 MAMMOGRAM, SCREENING 03/11/2025 Bone Density 01/27/2015 Urinalysis 02/21/2022 Urinalysis 02/13/2018 Urinalysis 02/20/2021 ENDOMETRIAL BX 05/13/2015 COMPLETE URINALYSIS 02/26/2022 URINE CULTURE 02/26/2022 BONE DENSITY 03/11/2025 BONE DENSITY 02/22/2020 BONE DENSITY 02/22/2023 MM Digital Mammo Screening 02/22/2023 MM Digital Mammo Screening 03/11/2025 MM Digital Mammo Screening 03/05/2024 MM Digital Mammo Screening 02/20/2021 MM Digital Mammo Screening 02/21/2022 Screening Bilateral Breast Ultrasound Next Appt Details Provider Name:Eliza Swan nehajose, 03/17/2026 01:00:00 PM, [address] [place] [address], [address], [place], [address], Insurance Providers Payer Name Payer Address Payer Phone Subscriber Number Group Number Insured Name Patient Relationship to Insured Coverage Start Date Coverage End Date MEDICARE [address] [place] [id number] [phone] [id number] MARY RHODES Self - patient is the insured MEDEX [address] [place] [address] [phone] [id number] MARY RHODES Self - patient is the insured Medical (General) History Medical History History ICD Code Hypothyroidism, unspecified E03.9 Menopausal and female climacteric states N95.1 Diverticulosis of intestine, part unspecified, without perforation or abscess without bleeding K57.90 Postmenopausal bleeding N95.0 Inconclusive mammogram R92.2 Hormone replacement therapy (postmenopau quinton) Z79.890 Polyp of corpus uteri N84.0 Postmenopausal atrophic vaginitis N95.2 Unspecified urinary incontinence R32 Mammographic heterogeneous density, bila teral breasts R92.333 Other specified disorders of bone densit y and structure, 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 Surgical History Surgery Date(Month/Year) Colonoscopy Right Toe Surgery Right Knee Surgery Left Wrist Surgery Hysteroscopy, Polypectomy with Michele Clear , Fractional D & C 07/11/17 Rotator Cuff Surgery Hospitalization History Reason Date(Month/Year) See Surgical Hx 1 Vaginal Delivery
== END 2025-06-23 15:22 | disposition home or self-care (01) ==
LOC: HO.HSMS 14:45
PROVIDERS: PCP Internal Medicine; Visit Provider Psychiatry & Neurology Neurology
DX: G51.32 Clonic hemifacial spasm, left (principal)
CPT/HCPCS: 99204

== ENCOUNTER → 2025-06-23 14:45 | Outpatient (BNVA) | payer MEDICARE, SELFPAY | PROVIDERS: PCP Internal Medicine; Visit Provider Psychiatry & Neurology Neurology | DX: G51.32 Clonic hemifacial spasm, left (principal) | CPT/HCPCS: 99202 ==